=== PATIENT | female | born 1990 | race American Indian/Alaskan Native ===

== ENCOUNTER 2020-04-15 05:27 | Emergency (ER) | payer MEDICAID ==
--- NOTE | 2020-04-15 05:53 | Event Note ---
ED Screening Note Date of service: 04/15/20 Time: 05:52 ED Screening Note: Patient 29-year-old female who presents with complaint of constipation. History of constipation. Patient denies fevers or chills there is no dysuria frequency urgency ER back pain. This initial assessment/diagnostic orders/clinical plan/treatment(s) is/are subject to change based on patients health status, clinical progression and re- assessment by fellow clinical providers in the ED. Further treatment and workup at subsequent clinical providers discretion. Patient/guardian urged not to elope from the ED as their condition may be serious if not clinically assessed and managed. Initial orders include:
[2020-04-15] MEDS ORDERED: MORPHINE 2 MG/1 ML INJ IV ONE (07:53)
[2020-04-15] MEDS ORDERED: SODIUM CHLORIDE 0.9% 1000 ML 1,000 ML IV ONE (07:53)
[2020-04-15] MEDS ORDERED: ONDANSETRON 4 MG/2 ML INJ IV ONE (07:53)
--- NOTE | 2020-04-15 08:17 | XRay Report ---
ABDOMEN 1 VIEW 8:13 AM INDICATION / CLINICAL INFORMATION: Abdominal pain. COMPARISON: None available. FINDINGS: TUBES / LINES: None. BOWEL GAS PATTERN: There is a moderate amount of stool in the colon. There is no evidence of bowel ob struction or mass effect. FREE AIR / EXTRALUMINAL GAS: None seen. ADDITIONAL FINDINGS: There are surgical clips in the right upper quadrant characteristic of prior cho lecystectomy. Internal fixation of the left femur is noted. There is a transitional lumbosacral segme nt. IMPRESSION: No acute abnormality. Signer Name: Prabhakar Camacho MD Signed: 04/15/2020 8:12 AM Workstation Name: [id number]
--- NOTE | 2020-04-15 08:17 | Emergency Department Report ---
ED Abdominal Pain HPI - General Chief Complaint: Abdominal Pain Stated Complaint: CONSTIPATION Time Seen by Provider: 04/15/20 07:33 Source: patient, EMS Mode of arrival: Wheelchair Limitations: No Limitations - History of Present Illness Initial Comments: This is a 29-year-old lady who had a about a month ago at [facility]. She states that "they nicked my bladder". She required a Walker catheter. She required a pelvic drain. Yesterday she went to her [facility] physician and the drain as well as the Walker catheter was removed. She describes having difficulty urinating and hard stool in her rectum. According to the triage note "she has had no bowel movement since having baby". She did not express this to me. She did state that she had been manually removing stool from herself. She complains of lower abdominal pain and rectal pain. Remarkably she comes to this facility after extensive care at [facility] for postsurgical complications. MD Complaint: abdominal pain -: Gradual, week(s) Location: LLQ, RLQ Radiation: none Migration to: no migration Severity: moderate Quality: aching Consistency: intermittent Improves With: nothing Worsens With: bowel movement Context: other (Postoperative) Associated Symptoms: nausea, vomiting (Vomited x1) - Related Data Previous Rx's Medication Instructions Recorded Last Taken Type Docusate Sodium [Colace] 100 mg PO BID #30 capsule 04/15/20 Unknown Rx cefUROXime [Ceftin] 250 mg PO Q12H #20 tablet 04/15/20 Unknown Rx traMADoL [Ultram 50 MG tab] 50 mg PO Q6HR PRN #10 tablet 04/15/20 Unknown Rx Allergies Allergy/AdvReac Type Severity Reaction Status Date / Time Sulfa (Sulfonamide Allergy Unknown Verified 04/15/20 06:07 Antibiotics) ED Review of Systems ROS: Stated complaint: CONSTIPATION Other details as noted in HPI Constitutional: denies: chills, fever Eyes: denies: eye pain, eye discharge, vision change ENT: denies: ear pain, throat pain Respiratory: denies: cough, shortness of breath Cardiovascular: denies: chest pain, palpitations Endocrine: no symptoms reported Gastrointestinal: abdominal pain, nausea, vomiting, constipation. denies: diarrhea Genitourinary: as per HPI Musculoskeletal: denies: back pain, arthralgia Skin: denies: rash, lesions Neurological: denies: headache, weakness, paresthesias Psychiatric: denies: anxiety, depression Hematological/Lymphatic: denies: easy bleeding, easy bruising ED Past Medical Hx - Past Medical History Previous Medical History?: No - Surgical History Past Surgical History?: Yes Additional Surgical History: c-sectionx4. with last bladder was nicked. - Social History Smoking Status: Never Smoker Substance Use Type: None - Medications Home Medications: Home Medications Medication Instructions Recorded Confirmed Last Taken Type Docusate Sodium [Colace] 100 mg PO BID #30 capsule 04/15/20 Unknown Rx cefUROXime [Ceftin] 250 mg PO Q12H #20 tablet 04/15/20 Unknown Rx traMADoL [Ultram 50 MG tab] 50 mg PO Q6HR PRN #10 tablet 04/15/20 Unknown Rx ED Physical Exam - General Limitations: Physical Limitation General appearance: obese - Head Head exam: Present: atraumatic, normocephalic - Eye Eye exam: Present: normal appearance. Absent: scleral icterus - ENT ENT exam: Present: mucous membranes moist - Neck Neck exam: Present: normal inspection - Respiratory Respiratory exam: Present: normal lung sounds bilaterally. Absent: respiratory distress - Cardiovascular Cardiovascular Exam: Present: regular rate, normal rhythm. Absent: systolic murmur, diastolic murmur, rubs, gallop - GI/Abdominal GI/Abdominal exam: Present: soft, tenderness (Lower abdominal discomfort to palpation which appears to be mild without peritoneal signs), normal bowel sounds, other (Healing drain site). Absent: distended, guarding, rebound, rigid - Extremities Exam Extremities exam: Present: normal inspection - Back Exam Back exam: Present: normal inspection - Neurological Exam Neurological exam: Present: alert, oriented X3, CN II-XII intact. Absent: motor sensory deficit - Psychiatric Psychiatric exam: Present: normal affect, normal mood - Skin Skin exam: Present: warm, dry, intact, normal color. Absent: rash ED Course Vital Signs 04/15/20 04/15/20 06:08 13:15 Temperature 98.9 F 98.1 F Pulse Rate 77 78 Respiratory 18 18 Rate Blood Pressure 116/64 Blood Pressure 112/66 [Right] O2 Sat by Pulse 92 98 Oximetry - Reevaluation(s) Reevaluation #1: Ordered ceftriaxone. Still awaiting CT report. Patient does appear to have a lot of stool on the CT. The radiologist read the CT as showing postoperative changes but nothing acute. They did not interpret the CT as consistent with fecal impaction. 04/15/20 14:11 Reevaluation #2: Patient declines enema. She will be given a Dulcolax suppository. 04/15/20 14:11 ED Medical Decision Making - Lab Data Result diagrams: 04/15/20 09:53 04/15/20 09:53 Critical care attestation.: If time is entered above; I have spent that time in minutes in the direct care of this critically ill patient, excluding procedure time. ED Disposition Clinical Impression: Abdominal pain Qualifiers: Abdominal location: lower abdomen, unspecified Qualified Code(s): R10.30 - Lower abdominal pain, unspecified Acute cystitis Qualifiers: Hematuria presence: with hematuria Qualified Code(s): N30.01 - Acute cystitis with hematuria Constipation Qualifiers: Constipation type: unspecified constipation type Qualified Code(s): K59.00 - Constipation, unspecified Disposition: TO HOME OR SELFCARE Is pt being admited?: No Does the pt Need Aspirin: No Condition: Stable Instructions: Abdominal Pain (ED), Constipation, Adult, Urinary Tract Infection, Adult, [id number] Additional Instructions: Follow-up with your urology doctor and surgeon at [facility]. I will give you something for pain, an antibiotic for your UTI and a stool softener. Return as needed any acute change or problem here or consider going to the [facility] emergency department where they have your physicians and records. A urine culture test has been performed here. The results will be ready in 2 to 3 days. This is to verify that the antibiotic I placed you on should be effective for your urinary tract infection. Prescriptions: cefUROXime [Ceftin] 250 mg PO Q12H #20 tablet Docusate Sodium [Colace] 100 mg PO BID #30 capsule traMADoL [Ultram 50 MG tab] 50 mg PO Q6HR PRN #10 tablet PRN Reason: Pain Referrals: PRIMARY CARE,MD [Primary Care Provider] - 3-5 Days Usual, providers at [facility] [Other] - 2-3 Days Time of Disposition: 14:14
[2020-04-15 09:59] LABS: Basophils # (Auto) 0.1 K/mm3 (0.0-0.1); Basophils % (Auto) 1.2 % (0.0-1.8); Eosinophils # (Auto) 0.2 K/mm3 (0.0-0.4); Eosinophils % (Auto) 1.9 % (0.0-4.3); Hematocrit 32.9 % (30.3-42.9); Hemoglobin 10.7 gm/dl (10.1-14.3); Lymphocytes # (Auto) 3.1 K/mm3 (1.2-5.4); Lymphocytes % (Auto) 34.1 % (13.4-35.0); Mean Corpuscular HGB Conc 33 % (30-34); Mean Corpuscular Volume 86 fl (79-97); Monocytes # (Auto) 0.9 K/mm3 (0.0-0.8); Monocytes % (Auto) 9.8 % (0.0-7.3); Platelet Count 335 K/mm3 (140-440); Red Blood Count 3.81 M/mm3 (3.65-5.03); Red Cell Distribution Width 15.8 % (13.2-15.2)
[2020-04-15 10:23] LABS: Blood Urea Nitrogen 8 mg/dL (7-17); Calcium 8.7 mg/dL (8.4-10.2); Hemolysis Index 20
[2020-04-15 10:28] LABS: BUN/Creatinine Ratio 13
[2020-04-15 11:08] LABS: HCG Qualitative,Urine Negative (Negative)
[2020-04-15 11:09] LABS: Bacteria,Urine 2+ /HPF (Negative); Bilirubin,Urine NEG (Negative); Blood,Urine LG (Negative); Color,Urine Yellow (Yellow); Mucus,Urine FEW /HPF; Urobilinogen,Urine < 2.0 mg/dL (<2.0); WBC,Urine > 182.0 /HPF (0.0-6.0)
[2020-04-15] MEDS ORDERED: cefTRIAXone/NS 1 GM/50 ML 1 GM/50 ML BAG IV ONE (12:29)
--- NOTE | 2020-04-15 12:36 | Cat Scan Report ---
CT abdomen pelvis w con INDICATION: MAIN. COMPARISON: None TECHNIQUE: Abdominal and pelvic CT exam performed. All CT scans at this location are performed using CT dose reduction for ALARA by means of automated exposure control. FINDINGS: CT ABDOMEN and PELVIS: Lung Bases: No significant abnormality. Liver: No significant abnormality. Biliary: Gallbladder is surgically absent. Spleen: No significant abnormality. Pancreas: No significant abnormality. Adrenals: No significant abnormality. Kidneys: No significant abnormality. Lymphatics: No lymphadenopathy. Vasculature: No significant abnormality. Bowel: No significant abnormality. Pelvis: There are expected postoperative changes from recent section. Enlarged postgravid ut erus. No organized collection. No significant abnormality in the postoperative bed. Small quantity of air are seen within the bladder likely due to instrumentation. Osseous Structures: No aggressive osseous lesion. Additional Findings: None IMPRESSION: 1. Anticipated postoperative changes from section. No complications visualized. Signer Name: Jayme Hale MD Signed: 04/15/2020 12:32 PM Workstation Name: [id number]
[2020-04-15] MEDS ORDERED: MORPHINE 4 MG/1 ML INJ IV ONE (13:03)
[2020-04-15 13:16] VITALS: BP 112/66
== END 2020-04-15 15:52 | disposition home or self-care (01) ==
LOC: ED 05:27
DX: N30.00 Acute cystitis without hematuria (principal); K59.00 Constipation, unspecified; R10.31 Right lower quadrant pain; R10.32 Left lower quadrant pain; R11.2 Nausea with vomiting, unspecified; Z98.890 Other specified postprocedural states; Z79.899 Other long term (current) drug therapy; Z88.2 Allergy status to sulfonamides
CPT/HCPCS: 36415; 74018; 74177; 80048; 81001; 81025; 82140; 85025; 87086; 96361; 96365; 96375; 96376; 99285; J0696; J2270; J2405; J7030; Q9967